=== PATIENT | male | born 1980 | race Two or more races ===

== ENCOUNTER 2019-09-16 16:06 | Emergency (ER) | payer OTHER ==
[~2019-09-16] VITALS: Ht 180.3 cm; Wt 90.0 kg
[2019-09-16] MEDS ORDERED: HYDROCODONE/ACETAMINOPHEN 5/325MG TABLET PO ONE (17:00)
[2019-09-16] MEDS ORDERED: IBUPROFEN 600MG TABLET PO ONE (19:15)
[2019-09-16 20:15] VITALS: BP 144/85
[2019-09-16] MEDS ORDERED: MORPHINE SULFATE 4 MG/ML CPJ (NOT FOR IM USE) IV ONE (20:15)
== END 2019-09-16 20:44 | disposition home or self-care (01) ==
LOC: ER 16:06
DX: S42.002A Fracture of unspecified part of left clavicle, initial encounter for closed fracture (principal); V89.2XXA Person injured in unspecified motor-vehicle accident, traffic, initial encounter; W22.11XA Striking against or struck by driver side automobile airbag, initial encounter; Y93.89 Activity, other specified; Y92.89 Other specified places as the place of occurrence of the external cause; Y99.8 Other external cause status
CPT/HCPCS: 70450; 71045; 72128; 72131; 73030; 96374; 99284; J2270; A4565